=== PATIENT | female | born 1955 | race Caucasian/White ===

== ENCOUNTER 2017-11-02 01:42 | Emergency (ER) | payer BC ==
[~2017-11-02] VITALS: Ht 177.8 cm; Wt 134.1 kg
[~2017-11-02 01:42] MED LIST: LOTENSIN HCT1 TA2 PO; PAROXETINE10 MG PO
[2017-11-02] MEDS ORDERED: ASPIRIN 81 LOW81 MG PO (02:08)
[2017-11-02 02:13] VITALS: BP 156/72
== END 2017-11-02 02:15 | disposition home or self-care (01) | DRG 301 ==
LOC: ED 01:42
DX: I83.891 Varicose veins of right lower extremity with other complications (principal); I83.013 Varicose veins of right lower extremity with ulcer of ankle